=== PATIENT | female | born 2000 | race Caucasian/White ===

== ENCOUNTER 2022-10-02 22:16 | Emergency (ER) | payer OTHER, SELFPAY ==
[2022-10-02 22:21] VITALS: BP 133/92; PULSE 97; RESP 18; TEMP 36.7; O2SAT 100; BMI 20.3
--- NOTE | 2022-10-02 22:45 | ED.ALLEREA ---
HPI - Allergic Reaction General Chief complaint: Allergic Reaction Stated complaint: allergic reaction Time Seen by Provider: 10/02/22 22:35 Source: patient and family Mode of arrival: ambulatory Limitations: no limitations History of Present Illness HPI narrative: Patient comes to the emergency room complaining of an allergic reaction. Approximately 6 hours ago, patient was at work, when she got home her face and lips were swollen, had hives. Patient took 2 tablets of Benadryl approximately 4 hours ago. This time, patient states that she feels much better, not itching, minimal hives present. Denies difficulty breathing. Patient has no known allergies. The patient's mother states that on 09/10/2022, patient had a similar reaction. Patient was then diagnosed with COVID, the patient was informed that something was ?wrong with her platelets?, and then was told that the skin reaction was secondary to COVID Related Data Previous Rx's Medication Instructions Recorded diphenhydramine HCl 25 mg capsule 50 mg PO .P.r.n. PRN allergic 10/03/22 (Benadryl) reaction #10 caps epinephrine 0.3 mg/0.3 mL 0.3 mg (0.3 mL) IM Q4H PRN 10/03/22 injection, auto-injector (EpiPen) anaphylaxis #2 ea famotidine 40 mg tablet (Pepcid) 40 mg PO .prn PRN allergic 10/03/22 reaction #10 tabs prednisone 50 mg tablet 100 mg PO .prn PRN allergic 10/03/22 reaction #10 tabs Allergies Allergy/AdvReac Type Severity Reaction Status Date / Time No Known Allergies Allergy Verified 10/02/22 22:21 Review of Systems Review of Systems: Constitutional : No Weight loss, No Fever, No Chills, No Night Sweats, No Fatigue, No Malaise ENT/Mouth : Swollen lips which are back to normal after taking Benadryl, No Hearing loss, No Ear Pain, No Nasal Congestion, No Sinus Pain, No Hoarseness, No sore throat, No Rhinorrhea, No Swallowing Difficulty Eyes: No Eye Pain, No Swelling, No Redness, No Foreign Body, No Discharge, No Vision Changes Cardiovascular : No Chest Pain, No SOB, No Dyspnea on Exertion, No Orthopnea, No Edema, No Palpitations Respiratory : No Cough, No Sputum, No Wheezing, No Smoke Exposure, No Dyspnea Gastrointestinal : No Nausea, No Vomiting, No Diarrhea, No Constipation, No abdominal Pain, No Hematochezia, No Melena Genitourinary : no irregular bleeding, No Dysuria, No Urinary Frequency, No Hematuria, No Urinary Incontinence, No Urgency, No Flank Pain, No Urinary Flow Changes, No Hesitancy Musculoskeletal : No joint pain, No Myalgias, No Joint Swelling Skin : Hives Neuro : No Weakness, No Numbness, No Paresthesias, No Loss of Consciousness, No Dizziness, No Headache Psych : No Anxiety/Panic, No Depression, No SI/HI/AH/VH, No Social Issues, Heme/Lymph: No Bruising, No Bleeding,No Lymphadenopathy Endocrine : No Polyuria, No Polydipsia, No Temperature Intolerance COUNTS INCLUDE 234 BEDS AT THE [facility] Social History Social History Alcohol intake: current Alcohol intake frequency: holidays/special occasions only Smoked in Last 30 Days: No Use of substances other than those prescribed or required for medical reasons: No Advance Directives: No Advance Directives Information Provided: No Patient : No Physical Exam ED Vital Signs: Vital Signs - 24 hr 10/02/22 22:21 10/02/22 22:46 10/02/22 23:13 Temperature 98.1 F 98.3 F Pulse Rate 97 84 100 Respiratory Rate 18 20 24 H Blood Pressure 133/92 H 113/77 122/76 Pulse Oximetry 100 100 100 Oxygen Delivery Method Room Air Room Air Room Air BMI result Body Mass Index 20.3 Const Other: Appearance: Alert. Oriented X3. No acute distress. Eyes: Pupils equal, round and reactive to light. ENT: Pharynx normal. Neck: Normal inspection. Neck supple. No lymph nodes noted. No crepitus CVS: Normal heart rate and rhythm. Pulses normal. Normal S1 and S2 Respiratory: No respiratory distress. Breath sounds normal. No Wheezing. No rales Abdomen: Soft and nontender. No rigidity. No distention. Skin: Skin warm and dry. Normal skin color. Normal skin turgor. Extremities: No lower extremity edema. No Lacerations. No Rash Neuro: Oriented X 3. No motor deficit. No sensory deficit. Moving all extremities. No slurred speech. CN 2 through 12 grossly intact Psych: calm, cooperative, normal affect Course Course Course Narrative: -at this time, patient has no angioedema, very minimal hives -patient given IV Solu-Medrol, diphenhydramine and famotidine. -patient's lip look normal but patient states that her they look still a bit swollen. Patient is asymptomatic, no wheezing, no difficulty breathing Medications Administered Discontinued Medications Generic Name Dose Route Start Last Admin Trade Name Sanam PRN Reason Stop Dose Admin Diphenhydramine HCl 25 mg 10/02/22 22:42 10/02/22 22:58 Diphenhydramine Hcl 50 Mg/Ml Vial IVPUSH 10/02/22 22:43 25 mg ONCE ONE Administration Famotidine 20 mg 10/02/22 22:42 10/02/22 22:58 Famotidine/Pf 20 Mg/2 Ml Vial IVPUSH 10/02/22 22:43 20 mg ONCE ONE Administration Methylprednisolone Sodium Succinate 125 mg 10/02/22 22:42 10/02/22 22:58 Methylprednisolone Sod Succ 125 Mg/2 Ml Vial IVPUSH 10/02/22 22:43 125 mg ONCE ONE Administration Medical Decision Making Medical Decision Making MDM Narrative: -earlier today, patient had hives, itching, very mild periorbital swelling, mild lip swelling. This is likely an allergic reaction. Upon arrival to the emergency room, patient was asymptomatic -I discussed with the patient to follow up with her primary care physician, who can refer her to immunology for allergy testing. -I discussed with the patient that her platelets are in the 90s. The patient's mother states that since the patient was a child, she has had issues with her bone marrow and gets a bone marrow biopsy every year. Patient is usually seen by heme Onc at [facility], patient will follow-up with her regular physicians. -patient was given a prescription for prednisone, Benadryl and Pepcid, and an EpiPen p.r.n. severe anaphylaxis P Differential Diagnosis Differential Diagnoses: The differential diagnosis associated with the presentation includes (Hereditary angioedema, allergic reaction) Lab Data 10/02/22 23:25 10/02/22 23:25 Labs: Lab Results 10/02/22 10/02/22 10/02/22 Range/Units 23:25 23:25 23:25 WBC 4.2 L (4.8-10.8) X10*3/uL RBC 4.17 L (4.20-5.50) X10*6/uL Hgb 11.6 L (12.0-16.0) g/dl Hct 35.4 L (37.0-47.0) % MCV 84.9 (80.0-98.0) fL MCH 27.8 (27.0-33.0) pg MCHC 32.8 (31.0-35.0) g/dl RDW 13.5 (11.0-16.0) % Plt Count 94 L (160-400) X10*3/uL MPV 11.9 (9.4-12.3) fL Immature Gran % (Auto) 0.2 (0.0-0.4) % Neut % (Auto) 55.3 (45-73) % Lymph % (Auto) 32.4 (20-40) % Mellette % (Auto) 12.1 H (2-11) % Eos % (Auto) 0.0 (0-4) % Baso % (Auto) 0.0 (0-2) % Lymph # (Auto) 1.4 (1.2-4.9) X10*3/uL Mellette # (Auto) 0.5 (0.1-1.2) X10*3/uL Eos # (Auto) 0.0 (0.0-0.4) X10*3/uL Baso # (Auto) 0.0 (0.0-0.2) X10*3/uL Abs Immat Gran (auto) 0.01 (0.00-0.03) X10*3/uL Absolute Neuts (auto) 2.3 (2.0-8.3) x10*3/uL Absolute Nucleated RBC 0.000 (0.0-0.012) X10*3/uL Nucleated RBC % (auto) 0.0 (0.0-0.2) /100WBC PT 13.3 H (10.0-13.1) SEC INR 1.2 H (0.9-1.1) APTT 36.2 (26.0-36.4) SEC Sodium 139 (135-145) mmol/L Potassium 3.6 (3.3-5.1) mmol/L Chloride 105 (96-108) mmol/L Carbon Dioxide 27 (22-29) mmol/L Anion Gap 11 L (12-20) BUN 10 (9-16) mg/dL Creatinine 0.69 (0.5-1.4) mg/dL Estim Creat Clear Calc 106.2 Estimated GFR > 60 Random Glucose 98 (60-115) mg/dL Calcium 8.5 (8.4-10.2) mg/dL Discharge Plan Discharge Clinical Impression: Allergic reaction Patient Disposition: Home, Self-Care Instructions: General Allergic Reaction (ED) Additional Instructions: Please follow-up with your primary care physician tomorrow. If you have any worsening or new symptoms, please return to the emergency room or call 911 The epinephrine pen should be used only in case of severe emergency which consist of significant respiratory distress. Hives, rash should by itself is not an indication to use EpiPen. Prescriptions: New diphenhydramine HCl [Benadryl] 25 mg capsule 50 mg PO .P.r.n. PRN (Reason: allergic reaction) Qty: 10 0RF prednisone 50 mg tablet 100 mg PO .prn PRN (Reason: allergic reaction) Qty: 10 0RF famotidine [Pepcid] 40 mg tablet 40 mg PO .prn PRN (Reason: allergic reaction) Qty: 10 0RF epinephrine [EpiPen] 0.3 mg/0.3 mL auto-injector 0.3 mg IM Q4H PRN (Reason: anaphylaxis) Qty: 2 0RF Rx Instructions: only to be used in a true severe allergic reaction including severe difficulty breathing. if you use it, you need to go to the emergency room
[2022-10-02 22:46] VITALS: BP 113/77; PULSE 84; RESP 20; TEMP 36.8; O2SAT 100
--- NOTE | 2022-10-02 22:46 | PC.NURSE ---
Pt. on monitor at this time
[2022-10-02] MEDS: methylPREDNISolone Sod Succ 125 MG/2 ML VIAL IVPUSH (22:58)
[2022-10-02] MEDS: Famotidine/PF 20 MG/2 ML VIAL IVPUSH (22:58)
[2022-10-02] MEDS: diphenhydrAMINE HCL 50 MG/ML VIAL 25 MG IVPUSH (22:58)
[2022-10-02 23:13] VITALS: BP 122/76; PULSE 100; RESP 24; O2SAT 100
[2022-10-02 23:30] LABS: MANUAL DIFF FLAG NO
[2022-10-02 23:31] LABS: Hematocrit 35.4 % (37.0-47.0); Hemoglobin 11.6 g/dl (12.0-16.0); Imm Gran Abs Auto 0.01 X10*3/uL (0.00-0.03); Imm Gran Pct Auto 0.2 % (0.0-0.4); Lymphocytes Absolute Auto 1.4 X10*3/uL (1.2-4.9); Lymphocytes Percent Auto 32.4 % (20-40); Mean Corpuscular HGB Conc 32.8 g/dl (31.0-35.0); Mean Corpuscular Hemoglobin 27.8 pg (27.0-33.0); Mean Corpuscular Volume 84.9 fL (80.0-98.0); Mean Platelet Volume 11.9 fL (9.4-12.3); Monocytes Absolute Auto 0.5 X10*3/uL (0.1-1.2); Monocytes Percent Auto 12.1 % (2-11); Neutrophils Absolute Auto 2.3 x10*3/uL (2.0-8.3); Neutrophils Percent Auto 55.3 % (45-73); Red Blood Count 4.17 X10*6/uL (4.20-5.50); Red Cell Distribution Width 13.5 % (11.0-16.0); White Blood Count 4.2 X10*3/uL (4.8-10.8)
[2022-10-02 23:33] LABS: Platelet Count 94 X10*3/uL (160-400)
[2022-10-02 23:40] LABS: INTERNATIONAL NORM RATIO 1.2 (0.9-1.1); Prothrombin Time 13.3 SEC (10.0-13.1)
[2022-10-02 23:42] LABS: Partial Thromboplastin Time 36.2 SEC (26.0-36.4)
[2022-10-02 23:47] LABS: Anion Gap 11 (12-20); Blood Urea Nitrogen 10 mg/dL (9-16); Carbon Dioxide 27 mmol/L (22-29); Chloride 105 mmol/L (96-108); Potassium 3.6 mmol/L (3.3-5.1); Sodium 139 mmol/L (135-145)
[2022-10-02 23:48] LABS: Calcium 8.5 mg/dL (8.4-10.2); Creatinine Clr Calc Pharmacy 106.2; Estimated Glomerular Filt Rate > 60; Glucose Random 98 mg/dL (60-115)
== END 2022-10-03 00:54 | disposition home or self-care (01) ==
PROVIDERS: Emergency Provider Emergency Medicine; PCP Pediatrics
DX: L50.0 Allergic urticaria (principal); Z79.899 Other long term (current) drug therapy
CPT/HCPCS: 36415; 80048; 85025; 85610; 85730; 96374; 96375; 99284; J1200; J2930